=== PATIENT | female | born 1980 | race Caucasian/White ===

== ENCOUNTER 2018-06-30 06:37 | Emergency (ER) | payer BC ==
[2018-06-30] MEDS ORDERED: Sodium Chloride 0.9% 1,000 ML IV ONE (06:55)
[2018-06-30] MEDS ORDERED: Sodium Chloride 0.9% 10 ML Syringe FLUSH PRN (06:55)
[2018-06-30] MEDS ORDERED: Ondansetron 4 MG/2 ML SDV IV ONE (06:55)
--- NOTE | 2018-06-30 06:56 | EDM.PDOC ---
ED HPI GENERAL MEDICAL PROBLEM - General Chief Complaint: Headache Stated Complaint: SEVERE HEADACHE/THROWING UP Time Seen by Provider: 06/30/18 06:55 Source of Information: Reports: Patient, RN, RN Notes Reviewed History Limitations: Reports: No Limitations - History of Present Illness INITIAL COMMENTS - FREE TEXT/NARRATIVE: Pt to ER with c/o headache. She states she has had the headache for about 2 weeks but got significantly worse last night and has been vomiting since about 4am. Patient states she frequently gets headaches, but they haven't been "this bad in quite a while". She states the pain comes up the neck and back of the head around to the right side of the head. Patient states she had a fever about 2 weeks ago, but nothing recent, denies recent illness, cough, congestion. Denies chances of . Admits to light sensitivity, but not sound. States she uses Excedrin and Flexeril for the headaches. Last took Flexeril at midnight. Onset: Gradual Duration: Chronic, Constant, Getting Worse Location: Reports: Head Quality: Reports: Ache, Throbbing Severity: Severe Improves with: Reports: None Worsens with: Reports: None Associated Symptoms: Reports: Headaches, Loss of Appetite, Nausea/Vomiting Treatments HYPERBARIC NURSE: Reports: Acetaminophen (Excedrin) Headache Pain Score (Numeric/FACES): 9 - Related Data Allergies Allergy/AdvReac Type Severity Reaction Status Date / Time dog dander Allergy Swelling Verified 06/30/18 06:45 doxepin Allergy Hives Verified 06/30/18 06:45 doxycycline Allergy Cannot Verified 06/30/18 06:45 Remember Home Meds: Home Meds Cetirizine [ZyrTEC] 10 mg PO DAILY 06/30/18 [History] Cyclobenzaprine [Flexeril] 5 mg PO ASDIRECTED PRN 06/30/18 [History] DULoxetine [Cymbalta] 90 mg PO DAILY 06/30/18 [History] Hydroxychloroquine [Plaquenil] 400 mg PO DAILY 06/30/18 [History] Melatonin 5 mg PO BEDTIME 06/30/18 [History] Norethindrone-Ethinyl Estrad [Alyacen] 1 each PO DAILY 06/30/18 [History] metFORMIN [Glucophage] 500 mg PO TIDMEALS 06/30/18 [History] traZODone HCl [Trazodone HCl] 50 mg PO BEDTIME 06/30/18 [History] Past Medical History HEENT History: Reports: Impaired Vision Gastrointestinal History: Reports: Inflammatory Bowel Disease IVF EMBRYOLOGIST History: Reports: Polycystic Ovaries Musculoskeletal History: Reports: Connective Tissue Disease, Fibromyalgia Social & Family History - Tobacco Use Smoking Status *Q: Never Smoker Second Hand Smoke Exposure: No - Recreational Drug Use Recreational Drug Use: No ED ROS GENERAL - Review of Systems Review Of Systems: ROS reveals no pertinent complaints other than HPI. - Physical Exam Exam: See Below Exam Limited By: No Limitations General Appearance: Alert, WD/WN, Moderate Distress Eye Exam: Bilateral Eye: EOMI, Normal Inspection Ears: Normal External Exam, Hearing Grossly Normal Nose: Normal Inspection Throat/Mouth: Normal Inspection, Normal Voice, No Airway Compromise Head Exam: Atraumatic, Normocephalic Neck: Normal Inspection, Supple, Full Range of Motion, Tender Lateral Respiratory/Chest: No Respiratory Distress, Lungs Clear, Normal Breath Sounds, No Accessory Muscle Use, Chest Non-Tender Cardiovascular: Normal Peripheral Pulses, Regular Rate, Rhythm, No Edema, No Gallop, No JVD, No Murmur, No Rub GI/Abdominal: Normal Bowel Sounds, Soft, Non-Tender (Female) Exam: Deferred Rectal (Female) Exam: Deferred Neuro Exam (Abbreviated): Alert, Oriented, CN II-XII Intact, Normal Cognition, Normal Gait, Normal Reflexes, No Motor/Sensory Deficits Back Exam: Normal Inspection, Full Range of Motion Extremities: Normal Inspection, Normal Range of Motion, Non-Tender, No Pedal Edema, Normal Capillary Refill Psychiatric: Anxious, Tearful Skin Exam: Warm, Dry, Intact, Normal Color, No Rash Course - Vital Signs Last Recorded V/S: Last Vital Signs Temp 97.5 F 06/30/18 06:41 Pulse 104 H 06/30/18 06:41 Resp 18 06/30/18 06:41 BP 148/97 H 06/30/18 06:41 Pulse Ox 96 06/30/18 06:41 - Orders/Labs/Meds Orders: Active Orders 24 hr Category Date Time Status Peripheral IV Care [RC] . DIRECTED Care 06/30/18 06:55 Active HCG QUALITATIVE,URINE [URCHEM] Stat Lab 06/30/18 06:54 Ordered Sodium Chloride 0.9% [Saline Flush] Med 06/30/18 06:55 Active 10 ml FLUSH ASDIRECTED PRN Peripheral IV Insertion Adult [OM.PC] Stat Oth 06/30/18 06:54 Ordered Medication Orders Sodium Chloride (Saline Flush) 10 ml FLUSH ASDIRECTED PRN PRN Reason: Keep Vein Open Last Admin: 06/30/18 07:00 Dose: 10 ml Labs: Laboratory Tests 06/30/18 06/30/18 Range/Units 06:58 06:58 WBC 9.3 (5.0-10.0) 10^3/uL RBC 5.09 (4.2-5.4) 10^6/uL Hgb 13.9 (12.0-16.0) g/dL Hct 43.1 (37.0-47.0) % MCV 84.7 (80-100) fL MCH 27.3 (27.0-34.0) pg MCHC 32.3 L (33.0-35.0) g/dL Plt Count 356 (150-450) 10^3/uL Neut % (Auto) 52.8 (42.2-75.2) % Lymph % (Auto) 36.0 (20.5-50.1) % [place] % (Auto) 10.2 H (2-8) % Eos % (Auto) 0.9 L (1.0-3.0) % Baso % (Auto) 0.1 (0.0-1.0) % Sodium 138 (135-145) mmol/L Potassium 3.6 (3.6-5.0) mmol/L Chloride 103 (101-111) mmol/L Carbon Dioxide 23.0 (21.0-31.0) mmol/L Anion Gap 15.6 BUN 12 (7-18) mg/dL Creatinine 0.8 (0.6-1.3) mg/dL Est Cr Clr Drug Dosing 88.38 mL/min Estimated GFR (MDRD) > 60 BUN/Creatinine Ratio 15.00 Glucose 114 H (74-105) mg/dL Calcium 8.6 (8.4-10.2) mg/dl Total Bilirubin 0.5 (0.2-1.0) mg/dL AST 32 (10-42) IU/L ALT 18 (10-60) IU/L Alkaline Phosphatase 51 (42-121) IU/L Total Protein 7.3 (6.7-8.2) g/dl Albumin 3.7 (3.2-5.5) g/dl Globulin 3.6 Albumin/Globulin Ratio 1.03 Meds: Medications Generic Name Dose Route Start Last Admin Trade Name Yaw PRN Reason Stop Dose Admin Sodium Chloride 10 ml 06/30/18 06:55 06/30/18 07:00 Saline Flush FLUSH 10 ml ASDIRECTED PRN Administration Keep Vein Open Discontinued Medications Generic Name Dose Route Start Last Admin Trade Name Yaw PRN Reason Stop Dose Admin Butorphanol Tartrate 2 mg 06/30/18 07:15 06/30/18 07:19 Stadol IVPUSH 06/30/18 07:16 2 mg ONETIME ONE Administration Sodium Chloride 1,000 mls @ 999 mls/hr 06/30/18 06:55 06/30/18 07:00 Normal Saline IV 06/30/18 07:55 999 mls/hr .BOLUS ONE Administration Ondansetron HCl 4 mg 06/30/18 06:55 06/30/18 07:00 Zofran IV 06/30/18 06:56 4 mg ONETIME ONE Administration Departure - Departure Time of Disposition: 08:12 Disposition: Home, Self-Care 01 Condition: Fair Clinical Impression: Tension-type headache - Discharge Information *PRESCRIPTION DRUG MONITORING PROGRAM REVIEWED*: No *COPY OF PRESCRIPTION DRUG MONITORING REPORT IN PATIENT RHODA: No Instructions: Tension Headache, Adult, [id number] Forms: ED Department Discharge Additional Instructions: Continue to take Ibuprofen as directed, Excedrin as directed Drink plenty of fluids Continue to use muscle relaxants as directed Follow up with your primary care facility RX: [email or web address] ODT - My Orders Last 24 Hours: My Active Orders 06/30/18 06:54 HCG QUALITATIVE,URINE [URCHEM] Stat Peripheral IV Insertion Adult [OM.PC] Stat 06/30/18 06:55 Peripheral IV Care [RC] . DIRECTED Sodium Chloride 0.9% [Saline Flush] 10 ml FLUSH ASDIRECTED PRN - Assessment/Plan Last 24 Hours: My Active Orders 06/30/18 06:54 HCG QUALITATIVE,URINE [URCHEM] Stat Peripheral IV Insertion Adult [OM.PC] Stat 06/30/18 06:55 Peripheral IV Care [RC] . DIRECTED Sodium Chloride 0.9% [Saline Flush] 10 ml FLUSH ASDIRECTED PRN
[2018-06-30] MEDS ORDERED: Butorphanol 2 MG/ML SDV IVPUSH ONE (07:15)
[2018-06-30 07:25] LABS: ANION GAP 15.6; CHLORIDE,CL 103 mmol/L (101-111); SODIUM,NA 138 mmol/L (135-145)
== END 2018-06-30 08:23 | disposition home or self-care (01) ==
LOC: DL.ED 06:37
DX: G44.209 Tension-type headache, unspecified, not intractable (principal); Z88.8 Allergy status to other drugs, medicaments and biological substances
CPT/HCPCS: 36415; 80053; 85025; 96361; 96374; 96375; 99283; J0595; J2405; J7030